=== PATIENT | female | born 1960 | race Caucasian/White ===

== ENCOUNTER 2021-08-14 14:56 | Emergency (ER) | payer SELFPAY ==
[2021-08-14 16:09] LABS: BASOPHIL 0.3 % (0-2); EOSINOPHIL 0.6 % (0-5); HGB 14.9 g/dl (12.5-16.0); LYMPHOCYTE 27.8 % (15-48); MCHC 33.9 g/dL (32.0-36.0); MCV 97.6 fL (78.0-100.0); MPV 9.6 fL (6.0-9.5); NRBC 0; PLT 165 K/uL (150-400); RBC 4.51 M/uL (4.20-5.40); RDW 13.2 % (11.5-14.0); WBC 3.6 K/uL (4.0-10.5)
[2021-08-14 16:30] LABS: ALBUMIN 3.8 g/dL (3.4-5.0); BILIRUBIN - TOTAL 0.3 mg/dL (0.2-1.0); BUN/CREAT RATIO (CALC) 23.2 RATIO; CREATININE 0.56 mg/dL (0.51-0.95); GLOBULIN (CALCULATION) 4.1 g/dL; POTASSIUM 3.4 mmol/L (3.5-5.1); TOTAL PROTEIN 7.9 g/dL (6.4-8.2)
[2021-08-14 16:42] LABS: INFLUENZA A NAA NEGATIVE (NEGATIVE)
[2021-08-14 16:45] LABS: CORONAVIRUS 2019 SARS-COV-2 POSITIVE (NEGATIVE)
[2021-08-14] MEDS ORDERED: VENTOLIN HFA IN18 GM INH (18:51)
== END 2021-08-14 19:12 | disposition home or self-care (01) ==
LOC: FER 14:56
PROVIDERS: Nurse Practitioner Family
DX: U07.1 COVID-19 (principal); Z23 Encounter for immunization; R91.1 Solitary pulmonary nodule; J44.9 Chronic obstructive pulmonary disease, unspecified
CPT/HCPCS: 36415; 71045; 71275; 80053; 85025; 85379; J7030; M0243; Q0244; Q9967; U0002